=== PATIENT | female | born 1965 | race Caucasian/White ===

== ENCOUNTER 2016-12-06 05:54 | Day surgery (SDC) | payer BC ==
[~2016-12-06] VITALS: Ht 162.6 cm; Wt 63.1 kg
[~2016-12-06 05:54] MED LIST: MULT-224 PO
[2016-12-06] MEDS ORDERED: LACTATED RINGERS 1,000 ML IV SCH (06:11)
[2016-12-06 06:13] VITALS: BP 123/81
[2016-12-06 06:35] LABS: HCG UR LOT HCG7030192
[2016-12-06 06:38] LABS: HCG UR OBC PASS
[2016-12-06] MEDS ORDERED: BUPIVACAINE/PF 0.25% ONE (06:46)
[2016-12-06] MEDS ORDERED: EPINEPHRINE 1 MG/ML, 1ML ONE (06:46)
[2016-12-06] MEDS ORDERED: NEOMY/POLYMYXIN B GU IRR. 1 ML IRRIG ONE (06:47)
[2016-12-06] MEDS ORDERED: MIDAZOLAM 1 MG/ML, 2ML ONE (07:07)
[2016-12-06] MEDS ORDERED: FENTANYL PF 250 MCG/5ML ONE (07:08)
[2016-12-06] MEDS ORDERED: CEFAZOLIN 1,000 MG ONE (07:37)
[2016-12-06] MEDS ORDERED: NEOSTIGMINE 1 MG/ML, 10ML ONE (07:37)
[2016-12-06] MEDS ORDERED: PROPOFOL 10 MG/ML, 20ML ONE (07:37)
[2016-12-06] MEDS ORDERED: GLYCOPYRROLATE 0.2MG/1ML, 5ML ONE (07:37)
[2016-12-06] MEDS ORDERED: ONDANSETRON 2MG/ML, 2ML ONE (07:37)
[2016-12-06] MEDS ORDERED: DEXAMETHASONE 4 MG/ML, 1ML ONE (07:37)
[2016-12-06] MEDS ORDERED: SUCCINYLCHOLINE 20 MG/ML, 10ML ONE (07:37)
[2016-12-06] MEDS ORDERED: ROCURONIUM 10MG/ML,5ML ONE (07:38)
[2016-12-06] MEDS ORDERED: MIDAZOLAM 1 MG/ML, 2ML IV PRN (08:00)
[2016-12-06] MEDS ORDERED: MEPERIDINE/PF 25MG/0.5ML IVPush PRN (08:00)
[2016-12-06] MEDS ORDERED: hydrALAzine 20 MG/ML, 1ML IV PRN (08:00)
[2016-12-06] MEDS ORDERED: ALBUTEROL SULFATE 2.5 MG/3 ML NPPB PRN (08:00)
[2016-12-06] MEDS ORDERED: ACETAMINOPHEN 325 MG TABLET PO PRN (08:00)
[2016-12-06] MEDS ORDERED: PROMETHAZINE 25 MG/ML, 1ML IV PRN (08:00)
[2016-12-06] MEDS ORDERED: OXYcodone 5 MG/5 ML ORAL.SOL UDC PO PRN (08:00)
[2016-12-06] MEDS ORDERED: METOPROLOL 1 MG/ML, 5ML IV PRN (08:00)
[2016-12-06] MEDS ORDERED: OXYcodone 5 MG/5 ML ORAL.SOL UDC ONE (09:15)
[2016-12-06] MEDS ORDERED: FENTANYL PF 100 MCG/2ML ONE (09:15)
[2016-12-06] MEDS ORDERED: ACETAMINOPHEN 650 MG/20.3 ML UDC ONE (09:15)
[2016-12-06] MEDS: FENTANYL PF 100 MCG/2ML IV PRN ×2 (09:19→09:27)
[2016-12-06] MEDS ORDERED: HYDROmorphone 1 MG/ML, 1ML ONE (09:32)
[2016-12-06] MEDS: HYDROmorphone 1 MG/ML, 1ML IV PRN ×2 (09:34→09:44)
[2016-12-06] MEDS ORDERED: OXYcodone/APAP 5/325MG TABLET ONE (13:14)
== END 2016-12-06 13:30 ==
LOC: EDSEX → OUT 05:54
PROVIDERS: ATTEND Obstetrics & Gynecology Female Pelvic Medicine and Reconstructive Surgery
DX: N92.1 Excessive and frequent menstruation with irregular cycle (principal); N94.6 Dysmenorrhea, unspecified; N83.8 Other noninflammatory disorders of ovary, fallopian tube and broad ligament; N81.89 Other female genital prolapse; N39.3 Stress incontinence (female) (male); Z98.51 Tubal ligation status; Z98.890 Other specified postprocedural states; Z88.0 Allergy status to penicillin
CPT/HCPCS: 57265; 57288; 57425; 58552; 81025; 88307; C1771; J0171; J0690; J1100; J1170; J2250; J2405; J2704; J2710; J3010; J3490; J7120; J0330